=== PATIENT | female | born 1955 | race Two or more races ===

== ENCOUNTER 2018-11-11 07:36 | Outpatient (CLI) | payer OTHER | END 2018-11-11 17:00 | disposition home or self-care (01) | LOC: SONOGRAMA 07:36 → MAMO-SONO 08:15 → SONOGRAMA 17:00 | DX: M79.642 Pain in left hand (principal) ==

== ENCOUNTER → 2021-12-06 07:21 | Outpatient (CLI) | payer OTHER | END | disposition home or self-care (01) | LOC: NUCLEAR 07:00 | PROVIDERS: ATTEND Internal Medicine Hepatology | DX: K31.84 Gastroparesis (principal) | CPT/HCPCS: 78264; A9541 ==